=== PATIENT | male | born 1985 | race Two or more races ===

== ENCOUNTER 2023-01-21 18:23 | Emergency (ER) | payer OTHER ==
[~2023-01-21] VITALS: Ht 172.7 cm; Wt 104.0 kg
[2023-01-21 18:35] VITALS: BP 114/73
[2023-01-21] MEDS ORDERED: CYCL-837 PO (21:07)
[2023-01-21] MEDS ORDERED: IBUP800T26 PO (21:07)
[2023-01-21] MEDS ORDERED: KETOROLAC TROMETH 60MG/2ML VIAL IM ONE (21:15)
== END 2023-01-21 22:21 | disposition home or self-care (01) ==
LOC: ER 18:23
DX: S20.211A Contusion of right front wall of thorax, initial encounter (principal); S06.9X9A Unspecified intracranial injury with loss of consciousness of unspecified duration, initial encounter; M25.511 Pain in right shoulder; V29.99XA Rider (driver) (passenger) of other motorcycle injured in unspecified traffic accident, initial encounter; Y93.55 Activity, bike riding; Y92.89 Other specified places as the place of occurrence of the external cause; Y99.8 Other external cause status
CPT/HCPCS: 70450; 71101; 73030; 99284; J1885